=== PATIENT | male | born 1990 | race Hispanic/Latino ===

== ENCOUNTER 2019-11-01 14:43 | Emergency (ER) | payer OTHER | END 2019-11-01 16:09 | disposition left against medical advice (07) | LOC: ERS 14:43 | DX: Z53.21 Procedure and treatment not carried out due to patient leaving prior to being seen by health care provider (principal) ==

== ENCOUNTER 2020-11-05 13:27 | Outpatient (CLI) | payer OTHER ==
--- NOTE | 2020-11-05 14:30 | RAD ---
EXAM: XR Cerv Sp Ap Lat STANDARD PROVIDED CLINICAL HISTORY: Cervical radicular pain. Patient states right arm pain as well as numbness in fourth and fifth digits . COMPARISON: None FINDINGS: C1 to the cervicothoracic junction is seen on the lateral view. There is straightening of the normal cervical lordotic curvature. The vertebral body heights are within normal limits. Osteophytes are seen anteriorly at the C5-6 and C6-7 levels. Interspinous distances are within normal limits. No frac ture or subluxation is seen. Prevertebral soft tissues are within normal limits. IMPRESSION: Straightening of normal cervical lordotic curvature. No fracture or subluxation is seen involving the cervical spine.
== END 2020-11-05 13:28 | disposition home or self-care (01) ==
LOC: BICRAD 13:27
PROVIDERS: ATTEND Family Medicine
DX: M54.12 Radiculopathy, cervical region (principal); M43.9 Deforming dorsopathy, unspecified
CPT/HCPCS: 72040